=== PATIENT | male | born 1975 | race Caucasian/White ===

== ENCOUNTER → 2018-07-10 | Outpatient (CLI) | payer MEDICAID, SELFPAY ==
[2018-07-10 09:27] VITALS: BP 134/86; PULSE 82; RESP 16; TEMP 36.5; O2SAT 98
--- NOTE | 2018-07-10 10:15 | DI.RAD_ITS ---
SYMPTOMS/DIAGNOSIS: LUMBAR RADICULOPATHY C-ARM FLUOROSCOPY OF THE LUMBAR SPINE: Fluoroscopy Time: 51.4 sec Fluoroscopy was provided for guidance with lumbar spine [facility] injection. Hard copy images show needle projecting on the right side at the L5 level. Please see procedure note for details.
--- NOTE | 2018-07-10 10:33 | PDOC.PAIN ---
Pain Clinic Procedure Note Current Active Problems Problem Status Onset Right sided sciatica Chronic LUMBAR / SACRAL TRANSFORAMINAL INJECTION MARILYN MOULTON has been [facility] for a transforaminal nerve root block and steroid injection. 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 There were no medical, pharmacologic, radiographic or other structural contraindications to attempting fluoroscopically guided transforaminal nerve root block and epidural steroid injection. Risks and expected side effects as well as potential benefit of the procedure were reviewed and voiced concerns addressed. The printed consent form was signed and witnessed. Standard time-out procedure was performed. Patient was placed in the prone position on the fluoroscopy table and automated blood pressure cuff and pulse oximeter applied. Fluoroscopy was utilized to identify the {right} neural foramen between L5 and S1 . A skin ike was made for the needle insertion site. A Chlorhexadine prep was carried out, and sterile drapes were applied. Local anesthesia was achieved in the skin and subcutaneous tissues. A 22 gauge curved tip spinal needle was then inserted, advanced with fluoroscopic guidance into the neural foramen, confirmed on the lateral view. After negative aspiration, 2 ml of Omnipaque 240 was injected confirming position in A/P and lateral views. This showed a good spread of dye transforaminally into the epidural space. There was no vascular update with contrast injection under continuous fluoroscopy and digital substraction. 40 mg of Depo-Medrol was injected, followed by 0.5 ml of 0.5% bupivacaine p flush for the nerve root block, as well. There was no unusual discomfort expressed.The needle was withdrawn. The patient tolerated the procedure well. A Band-Aid was applied. Vital signs were stable throughout the procedure and were as recorded in nursing records. If given, dosages of intravenous drugs for anxiolysis and analgesia were documented in nursing records. Follow up plans and appointments were discussed. Post procedure instruction was given as documented in nursing records and patient was discharged in the care of an identified oil transport driver. COMMENTS: patient will follow-up as needed. Could repeat if he gets relief that lasts .. He was feeling nauseated but vital signs were stable- Start IV and use Versed next time. CC: Ab
[2018-07-10 10:45] VITALS: BP 142/92; PULSE 86; RESP 16; O2SAT 99
[2018-07-10] MEDS: Omnipaque 240 MG/ML 50 ML BTL IJ (10:49)
[2018-07-10] MEDS: Bupivacaine 0.5% Pres-Free 30 ML VIAL IJ (10:50)
[2018-07-10] MEDS: methylPREDNISolone ACETATE 40 MG/ML VIAL IJ (10:50)
== END ==
PROVIDERS: PCP Family Medicine; Visit Provider Anesthesiology Pain Medicine
DX: M54.31 Sciatica, right side (principal); G89.29 Other chronic pain
CPT/HCPCS: 64483; 72100; J1030; Q9967

== ENCOUNTER 2019-02-25 08:57 | Outpatient (CLI) | payer MEDICAID, SELFPAY ==
[2019-02-25 09:16] VITALS: BP 139/97; PULSE 88; RESP 20; TEMP 36.8; O2SAT 98
[2019-02-25 09:48] VITALS: BP 159/91; PULSE 92; RESP 15; O2SAT 99
--- NOTE | 2019-02-25 09:49 | PDOC.PAIN ---
Pain Clinic Procedure Note Current Active Problems Problem Status Onset Lumbar radiculitis LUMBAR / SACRAL TRANSFORAMINAL INJECTION MARILYN MOULTON has been referred to the [facility] for a transforaminal nerve root block and steroid injection. COMMENTS: He did well with his last TFESI on right L5 Patient was interviewed and the medical record reviewed. There were no medical, pharmacologic, radiographic or other structural contraindications to attempting fluoroscopically guided transforaminal nerve root block and epidural steroid injection. Risks and expected side effects as well as potential benefit of the procedure were reviewed and voiced concerns addressed. The printed consent form was signed and witnessed. Standard time-out procedure was performed. Patient was placed in the prone position on the fluoroscopy table and automated blood pressure cuff and pulse oximeter applied. Fluoroscopy was utilized to identify the right neural foramen between L5 and S1. A skin ike was made for the needle insertion site. A Chlorhexadine prep was carried out, and sterile drapes were applied. Local anesthesia was achieved in the skin and subcutaneous tissues. A 22 gauge curved tip spinal needle was then inserted, advanced with fluoroscopic guidance into the neural foramen, confirmed on the lateral view. After negative aspiration, 2 ml of Omnipaque 240 was injected confirming position in A/P and lateral views. This showed a good spread of dye transforaminally into the epidural space. There was no vascular update with contrast injection under continuous fluoroscopy and digital substraction. 15 mg of Dexamethasone was injected, followed by 0.5 ml of 1% Xylocaine flush for the nerve root block, as well. There was no unusual discomfort expressed.The needle was withdrawn. The patient tolerated the procedure well. A Band-Aid was applied. Vital signs were stable throughout the procedure and were as recorded in nursing records. If given, dosages of intravenous drugs for anxiolysis and analgesia were documented in nursing records. Follow up plans and appointments were discussed. Post procedure instruction was given as documented in nursing records and patient was discharged in the care of an identified drivers license examiner. COMMENTS: If this procedure is effective, it can be completed up to 3 times per 12 months. CC: Galindo Berger
--- NOTE | 2019-02-25 09:57 | DI.RAD_ITS ---
SYMPTOMS/DIAGNOSIS: LUMBAR RADICULOPATHY, TRANSFORAMINAL EPIDURAL STEROID INJECTION PAIN CLINIC: Fluoroscopy Time: 54.1s, 14.64mGy Fluoroscopy was utilized by Dr. Hernandez during the performance of a transforaminal epidural steroid injection. Please refer to the procedure report for complete details.
[2019-02-25] MEDS: Omnipaque 240 MG/ML 50 ML BTL IJ (09:58)
[2019-02-25] MEDS: Dexamethasone Sod. Phos./Pres-Free 10 MG/ML VIAL IJ (09:58)
== END 2019-02-25 09:17 ==
PROVIDERS: PCP Family Medicine; Visit Provider Preventive Medicine Occupational Medicine
DX: M54.16 Radiculopathy, lumbar region (principal)
CPT/HCPCS: 64483; 72100; Q9967